=== PATIENT | male | born 1975 | race Caucasian/White ===

== ENCOUNTER 2021-03-28 11:54 | Emergency (ER) | payer OTHER ==
[~2021-03-28] VITALS: Ht 182.9 cm; Wt 99.8 kg
[2021-03-28 11:54] VITALS: BP_SYST 122
--- NOTE | 2021-03-28 11:54 | NUR ---
BROUGHT IN BY [facility], PLACED IN BED #1 AND TRIAGED. REPORT GIVEN TO NORMAN
--- NOTE | 2021-03-28 11:55 | NUR ---
Patient to ER bed 1 to gown for evaluation. Side rails up.
--- NOTE | 2021-03-28 11:55 | NUR ---
Pt bib ambulance with complaint of anaphylactic reaction from a bee sting. Pt was at [facility] and was stung by a bee and had a anaphylactic reaction. Pt presenting with stable vital signs saturating well. Airway clear breathing even and unlabored. speech slightly muffled with pt clearing throat continously. Pt AAOX4. Pt presenting SOB with expiratory wheezes in lower lobes. Pt attached to monitor in [facility] on 2L NC. Pt has 18 Gauge IV in LAC.
--- NOTE | 2021-03-28 11:55 | NUR ---
BRIJESH Sebastian at bedside examining patient.
--- NOTE | 2021-03-28 11:58 | NUR ---
RT at bedside
[2021-03-28] MEDS ORDERED: RACEPINEPHRINE HCL 0.5 ML VIAL.NEB INH ONE ×2 (11:59→12:00)
[2021-03-28] MEDS ORDERED: methylPREDNISolone SOD SUCC/PF 62.5 MG/ML VIAL IVP ONE (12:00)
[2021-03-28] MEDS ORDERED: FAMOTIDINE PF 20 MG/2 ML VIAL IVP ONE (12:00)
[2021-03-28] MEDS ORDERED: NACL 0.9% 1,000 ML IV ONE (12:00)
[2021-03-28] MEDS ORDERED: DIPHENHYDRAMINE INJ 50 MG/ML VIAL IVP ONE (12:00)
--- NOTE | 2021-03-28 12:49 | NUR ---
Pt resting asleep in [facility] VSS no distress noted. Given blanket and pillow for comfort in fowlers position.
--- NOTE | 2021-03-28 14:09 | NUR ---
Spoke with of pt [phone]. Updated on pt condition.
[2021-03-28] MEDS ORDERED: PRED20TA PO (14:47)
[2021-03-28] MEDS ORDERED: CETI10CA11 PO (14:47)
[2021-03-28] MEDS ORDERED: FAMO20TA8 PO (14:47)
[2021-03-28] MEDS ORDERED: EPIN0.3P3 IM (14:47)
--- NOTE | 2021-03-28 15:39 | NUR ---
PT ESCORTED OUT TO CAR, IN CAR WITH BABIES.
--- NOTE | 2021-03-28 15:40 | NUR ---
Patient given written and verbal discharge instructions and verbalizes understanding. ER MD discussed with patient the results and treatment provided. Patient in stable condition. ID arm band removed. IV catheter removed intact and dressing applied, no active bleeding. Rx of Pepcid, epi pen, ceterizine, prednisone given. Patient educated on pain management and to follow up with PMD. Pain Scale 0/10. Opportunity for questions provided and answered. Medication side effect fact sheet provided.
[2021-03-28 15:42] VITALS: BP_SYST 140
== END 2021-03-28 15:40 | disposition home or self-care (01) ==
LOC: SED 11:54
DX: T63.441A Toxic effect of venom of bees, accidental (unintentional), initial encounter (principal); T78.2XXA Anaphylactic shock, unspecified, initial encounter; X58.XXXA Exposure to other specified factors, initial encounter; Z79.899 Other long term (current) drug therapy
CPT/HCPCS: 94640; 96361; 96374; 96375; 99291; J1200; J2930; J3490; J7030; 99284